=== PATIENT | male | born 1990 | race African-American/Black ===

== ENCOUNTER 2020-09-05 13:54 | Emergency (ER) | payer SELFPAY ==
[2020-09-05] MEDS ORDERED: Dexamethasone 10 MG/ML VIAL ONE (14:36)
--- NOTE | 2020-09-05 14:39 | RAD ---
XR Chest 1 View Portable History: Cough and sore throat Comparison: None. Findings: Lungs are clear. No pneumothorax or effusion. Cardiac silhouette and mediastinal contours a re within normal limits. No acute osseous abnormality. Impression: No acute intrathoracic abnormality.
[2020-09-05 23:46] LABS: SARS-CoV-2 MS2 Positive; SARS-CoV-2 N Gene Negative; SARS-CoV-2 S Gene Negative; SARS-CoV-2 by NAA Not Detected (NotDetected); SARS-CoV-2 orf1ab Negative
== END 2020-09-05 15:41 | disposition home or self-care (01) ==
LOC: ERS 13:54
DX: J06.9 Acute upper respiratory infection, unspecified (principal); Z20.828 Contact with and (suspected) exposure to other viral communicable diseases; F17.210 Nicotine dependence, cigarettes, uncomplicated
CPT/HCPCS: 71045; 87635; J1100; U0003